=== PATIENT | male | born 1975 | race Caucasian/White ===

== ENCOUNTER → 2021-07-03 | Day surgery (SDC) | payer OTHER ==
[~2021-07-03] VITALS: Ht 177.8 cm; Wt 104.3 kg
[~2021-07-03] MED LIST: CIALIS PO; CRESTOR5 M1 PO; XYZAL PO
[2021-07-03 08:12] LABS: HCT 43.1 % (42.0-52.0); HGB 14.7 g/dl (13.2-18.0); MCH 29.8 pg (25.0-31.0); MCHC 34.1 g/dL (32.0-36.0); MCV 87.2 fL (78.0-100.0); MPV 9.9 fL (6.0-9.5); RBC 4.94 M/uL (4.70-6.00); RDW 12.6 % (11.5-14.0); WBC 5.9 K/uL (4.0-10.5)
[2021-07-03 08:25] LABS: BILIRUBIN - TOTAL 0.8 mg/dL (0.2-1.0); BUN/CREAT RATIO (CALC) 20.5 RATIO; CREATININE 0.78 mg/dL (0.67-1.17); GLOBULIN (CALCULATION) 3.6 g/dL; POTASSIUM 4.1 mmol/L (3.5-5.1); TOTAL PROTEIN 7.6 g/dL (6.4-8.2)
== END | disposition home or self-care (01) ==
LOC: FAS 07:26
PROVIDERS: Surgery
DX: Z12.11 Encounter for screening for malignant neoplasm of colon (principal); E78.00 Pure hypercholesterolemia, unspecified; E78.5 Hyperlipidemia, unspecified; Z79.899 Other long term (current) drug therapy
CPT/HCPCS: 36415; 80053; J2704; J7120